=== PATIENT | female | born 1995 | race African-American/Black ===

== ENCOUNTER 2017-02-13 07:15 | Inpatient (IN) ==
[2017-02-13] MEDS ORDERED: CITRIC ACID/SODIUM CITRATE 30 ML UDCUP PO ONE (07:57)
[2017-02-13] MEDS ORDERED: FAMOTIDINE 20 MG/2 ML VIAL IV ONE (07:57)
[2017-02-13] MEDS ORDERED: ceFAZolin 2,000 MG in PREMIX 1 EACH IV ONE (07:57)
[2017-02-13] MEDS ORDERED: LACTATED RINGERS 1,000 ML IV SCH ×2 (08:00→12:00)
[2017-02-13] MEDS ORDERED: OXYTOCIN/LR 20 UNIT/1,000 ML BAG IV ONE ×2 (08:02→11:34)
[2017-02-13] MEDS ORDERED: OXYTOCIN/LR 30 UNIT/1,000 ML BAG IV ONE (08:02)
[2017-02-13] MEDS ORDERED: OXYTOCIN 10 UNIT/ML VIAL IM ONE (08:02)
[2017-02-13 08:20] LABS: Basophils % 0.3 % (0.0-0.8); Eosinophils # 0.2 10*3/uL (0.0-0.87); Eosinophils % 1.3 % (0.00-10.9); Hematocrit 30.3 VOL% (35.7-47.0); Hemoglobin 9.9 GM/DL (12.0-16.0); Immature Granulocytes % 0.8 %; Immature Granulocytes Absolute 0.09 #; Lymphocytes # 2.3 10*3/uL (1.4-4.0); Lymphocytes % 18.8 % (21.3-54.2); Mean Corpuscular HGB Conc 32.7 GM/DL (32-36); Mean Corpuscular Hemoglobin 25 PG (27-34); Mean Corpuscular Volume 76.5 FL (87-102); Monocytes % 8.1 % (1.7-12.7); Neutrophils # 8.4 10*3/uL (1.4-7.4); Neutrophils % 70.7 % (38.7-73.9); Platelet Count 215 T/CUMM (130-400); Red Blood Count 3.96 MC/CUMM (3.8-5.5); Red Cell Distribution Width 15.5 % (9.3-17.3); White Blood Count 11.9 T/CUMM (4-12)
[2017-02-13 08:54] LABS: Bilirubin,Total 0.4 MG/DL (0.2-1.0); Calcium 9.5 MG/DL (8.5-10.1); Osmolality,Calculated 272.7 MOS/KG (273-304); Potassium 4.3 MMOL/L (3.5-5.1); Total Protein 7.2 G/DL (6.4-8.3)
--- NOTE | 2017-02-13 09:35 | OB/GYN History & Physical ---
History of Present Illness Chief complaint: For repeat section due to previous section History of present illness: Ms. Jimenez is a 21 year old female who is a 2 para 1 living 1. Her KALEN is 6 a 17 estimated gestational age of 39 weeks. The patient presents for repeat section due to previous section 1. The risk and benefits been thoroughly discussed with this patient and significant other, plan of care has been discussed with Dr. Wallis and all parties are in agreement plan. Patient received her care at the [facility] and she received routine care, her course has been uneventful. The patient had a previous section of a liveborn infant and she reported no complications with that other than elevated blood pressures towards the end of her . labs: Patient is O+, rubella is immune, serologies nonreactive, hepatitis B negative, HIV negative, GBS culture positive. Home Medications Medication Instructions Recorded Confirmed Type Vit 108/Iron/Folic AC 1 each PO DAILY 02/13/17 02/13/17 History [ One Tablet] Allergies Allergy/AdvReac Type Severity Reaction Status Date / Time No Known Allergies Allergy Verified 02/13/17 07:57 12 point system: reviewed and no additional remarkable complaints except as stated Medical,Surgical,& Family Hx - Medical History Cardio: History of: Hypertension - Surgical History Reproductive Surgeries: Surgical HX of;: Section (2009) - Family History Family History: Reports;: Family Diabetes (Father), Family Hypertension (Father) - Social History Smoking Status: Former smoker (Patient states that she quit in April 2016) Have you smoked in the last 12 months: Yes Type of Drug Use: Marijuana (Past use denies during ) Marital Status: Single Lives With:: Significant Other Functional capacity: independent ambulation [employer] - Constitutional General appearance: no acute distress - Antepartum / Post Antepartum Exam Cervix - Dilatation: Deferred Breast: bilateral: normal Abdomen obstetrics: Present: bowel sounds normal Uterus exam: Present: enlarged - Respiratory Respiratory exam: Present: clear to auscultation bilaterally - Cardiovascular Cardiovascular exam: Present: regular rate and rhythm - GI/Abdominal GI/Abdominal exam: Present: normal bowel sounds, soft - Extremities Exam Extremities exam: Present: normal inspection - Back Exam Back exam: Present: normal inspection - Neurological Exam Neurological exam: Present: alert, oriented X3 - Psychiatric Psychiatric exam: Present: normal affect, normal mood - Skin Skin exam: Present: normal color, warm Assessment and Plan (1) Term Status: Acute Assessment and plan: Admit IV fluids Preop and consent for repeat section per Dr. Wallis Anticipate delivery of viable infant Current Visit: Yes (2) Previous section Status: Acute Assessment and plan: Same as above Current Visit: Yes Results - Labs CBC & BMP: 02/13/17 08:03 02/13/17 08:03
[2017-02-13 11:25] LABS: Cord Arterial Blood HCO3 24.8 MMOL/L
[2017-02-13 11:28] LABS: Cord Venous Blood HCO3 22.1 MMOL/L; Cord Venous Blood PCO2 38.4 MMHG; Cord Venous Blood PO2 37.2 MMHG
--- NOTE | 2017-02-13 11:33 | Operative Note ---
Date of procedure: 02/13/17 Procedure: Preoperative diagnosis: 39 weeks, repeat section Postoperative diagnosis: Same Anesthesia:[] Regional anesthesia Estimated blood loss: [] 300 cc Surgeon: Dr. Wallis Findings: [] Female infant, born at 11:09 AM, 6 lbs. 12 oz., Apgars 8 at 1 minute 9 at 5 minutes Complications: None Procedure: Low transverse section The patient was taken to the operating suite heart tones were obtained prior to and after regional anesthesia was obtained. She was placed in supine position her abdomen was prepped and draped in usual manner for major abdominal surgery. Through an abdominal incision the skin, subcutaneous, fascial layer and peritoneal the abdomen was entered. The bladder flap was created and a low transverse incision was made.. Fluid was clear and normal amount X, Apgars, the placenta was delivered and sent to lab for further evaluation. Injected with intrauterine Pitocin. The first layer of the uterus was closed with #1 Vicryl in a continuous locking manner. Close to imbricate the first layer with #1 Vicryl. The peritoneum was approximated with #2-0 Vicryl.[] All the last sponges and instruments were accounted for -2.) #2-0 Vicryl. Fascia was approximated with #0-0 Maxon.. The skin was approximated with chaz. She tolerated procedure well and was taken to recovery room in stable condition. Surgeon / Physician: Samir Wallis Results - Labs CBC & BMP: 02/13/17 08:03 02/13/17 08:03 Discharge Plan - Discharge Medications No Action Vit 108/Iron/Folic AC [ One Tablet] 1 each PO DAILY - Follow Up or Referral - Forms/Instructions
[2017-02-13] MEDS ORDERED: MAGNESIUM HYDROXIDE SUSP 30 ML UDCUP PO PRN (11:34)
[2017-02-13] MEDS ORDERED: IBUPROFEN 800 MG TABLET PO PRN (11:34)
[2017-02-13] MEDS ORDERED: ONDANSETRON 4 MG/2 ML VIAL IV PRN (11:34)
[2017-02-13] MEDS ORDERED: SIMETHICONE CHEW 80 MG TABLET PO PRN (11:34)
[2017-02-13] MEDS ORDERED: ACETAMINOPHEN 325 MG TABLET PO PRN (11:34)
[2017-02-13] MEDS ORDERED: fentaNYL 100 MCG/2 ML VIAL ONE (11:43)
[2017-02-13] MEDS ORDERED: MIDAZOLAM 2 MG/2 ML VIAL ONE (11:43)
[2017-02-13] MEDS ORDERED: ePHEDrine 50 MG/ML AMP ONE (11:44)
[2017-02-13] MEDS ORDERED: MORPHINE 10 MG/10 ML VIAL ONE (11:45)
[2017-02-13] MEDS ORDERED: RHO(D) IMMUNE GLOBULIN 300 MCG SYRINGE IM ONE (12:00)
[2017-02-13 12:48] LABS: Apearance,Urine CLEAR (Clear); Bilirubin,Urine Negative (Negative); Blood, Urine Negative (Negative); Glucose,Urine (UA) Negative (Negative); Ketones,Urine Negative (Negative); Nitrite,Urine Negative (Negative); Protein,Urine Negative; Squamous Epithelial Cell,Urine Occasional /HPF (0-10); Urine Color Yellow (Yellow); Urine Specific Gravity 1.006 (1.001-1.035); Urine Urobilinogen < 2.0 EU/DL (0.2-1.0); WBC,Urine <1 /HPF (0-6)
--- NOTE | 2017-02-13 15:27 | Anesthesia Post-Op ---
Anesthesia Post OP - Post Ansesthetic Evaluation Patient seen in post op: Yes Resp: within normal limits CV: within normal limits Mental: within normal limits Temp: within normal limits [id number]: within normal limits Nausea and Vomiting: within normal limits Pain: within normal limits
[2017-02-13 19:23] LABS: Basophils % 0.2 % (0.0-0.8); Eosinophils # 0.1 10*3/uL (0.0-0.87); Eosinophils % 0.5 % (0.00-10.9); Hematocrit 28.6 VOL% (35.7-47.0); Hemoglobin 9.2 GM/DL (12.0-16.0); Immature Granulocytes % 0.9 %; Immature Granulocytes Absolute 0.12 #; Lymphocytes # 1.6 10*3/uL (1.4-4.0); Lymphocytes % 11.9 % (21.3-54.2); Mean Corpuscular HGB Conc 32.2 GM/DL (32-36); Mean Corpuscular Hemoglobin 25 PG (27-34); Mean Corpuscular Volume 77.9 FL (87-102); Mean Platelet Volume 12.6 FL (9.6-12.0); Monocytes % 7.6 % (1.7-12.7); Neutrophils # 10.5 10*3/uL (1.4-7.4); Neutrophils % 78.9 % (38.7-73.9); Platelet Count 207 T/CUMM (130-400); Red Blood Count 3.67 MC/CUMM (3.8-5.5); Red Cell Distribution Width 15.4 % (9.3-17.3); White Blood Count 13.3 T/CUMM (4-12)
[2017-02-14] MEDS: DOCUSATE SODIUM 100 MG CAPSULE PO SCH ×3 (00:59→22:05)
[2017-02-14 06:56] LABS: Basophils % 0.2 % (0.0-0.8); Eosinophils % 0.3 % (0.00-10.9); Hemoglobin 8.6 GM/DL (12.0-16.0); Immature Granulocytes % 1.5 %; Immature Granulocytes Absolute 0.18 #; Lymphocytes # 1.4 10*3/uL (1.4-4.0); Lymphocytes % 11.1 % (21.3-54.2); Mean Corpuscular HGB Conc 31.9 GM/DL (32-36); Mean Corpuscular Hemoglobin 24 PG (27-34); Mean Corpuscular Volume 76.7 FL (87-102); Mean Platelet Volume 12.8 FL (9.6-12.0); Monocytes # 1.1 10*3/uL (0.11-0.8); Monocytes % 9.1 % (1.7-12.7); Neutrophils # 9.5 10*3/uL (1.4-7.4); Neutrophils % 77.8 % (38.7-73.9); Platelet Count 218 T/CUMM (130-400); Red Blood Count 3.52 MC/CUMM (3.8-5.5); Red Cell Distribution Width 15.3 % (9.3-17.3); White Blood Count 12.2 T/CUMM (4-12)
[2017-02-14 07:25] LABS: Lymphocytes 6 % (20-55); Segmented Neutrophils 84 % (50-85); Total Cells Counted 100
[2017-02-14 07:26] LABS: Hypochromasia 1+; Ovalocytes Slight; Platelet Estimate Normal
[2017-02-14] MEDS: MULTIVITAMIN (PRENATAL) TABLET PO SCH (09:00)
[2017-02-14] MEDS: FERROUS SULFATE 325 MG TABLET PO SCH ×2 (09:00→22:05)
--- NOTE | 2017-02-14 14:27 | Progress Note ---
Family Medicine PN Sub Interval history: Postop day #1 status post section Lungs clear cardiac exam benign Abdomen soft and nontender Incision sites intact Extremities well with no limits neurologic grossly intact Possible discharge in a.m. Exam (Progress Note) - Constitutional Vitals: Period Temp Pulse Resp BP Sys/Richter Pulse Ox Last 24 Hr 97.6 F-98.3 F 60-83 18-20 99-120/58-76 97-100 Results - Labs CBC & BMP: 02/14/17 06:27 02/13/17 08:03 Quality Measures - VTE Contraindication to Pharmacological VTE Prophylaxis: Clinical assessment deems Pt at low risk, no prophalaxis needed
[2017-02-14] MEDS ORDERED: HYDROCORTISONE 2.5% RECTAL CREAM 30 GM TUBE TOP PRN (20:48)
[2017-02-14] MEDS ORDERED: WITCH HAZEL PADS 100/JAR TOP PRN (20:49)
[2017-02-15] MEDS: DOCUSATE SODIUM 100 MG CAPSULE PO SCH (08:52)
[2017-02-15] MEDS: FERROUS SULFATE 325 MG TABLET PO SCH (08:52)
[2017-02-15] MEDS: MULTIVITAMIN (PRENATAL) TABLET PO SCH (08:54)
--- NOTE | 2017-02-15 11:46 | Discharge Summary ---
Hospital Course - Hospital Course Hospital Course: Postop day #2 secondary to a repeat section. Incision sites intact, patient is doing extremely well. Uterus is nice and firm Extremities well with no limits neurologic grossly intact We will DC today and follow-up our office in 2 weeks Specialty Discharge - Follow Up or Referrals Discharge Plan - Discharge Data Condition at Discharge: Stable Discharge Diet: advance to your usual diet Activity: increase activity as tolerated Hygiene: no restrictions, may shower Weight Bearing at Discharge: full weight bearing Driving: not until seen by doctor Contact your physician if you experience:: fever over 101, Bleeding - Discharge Medications New HYDROcodone/ACETAMIN 5-325 [[place] 5-325] 1 tablet PO Q6H PRN #30 tablet PRN Reason: Pain Moderate (4-7) Hydrocortisone (Anusol-Hc) Sup [ANUSOL HC SUPP (hydrocortisone)] 25 mg RECTAL BID #14 supp Ibuprofen Tab [Motrin Tab] 800 mg PO Q8H PRN #60 tablet PRN Reason: Pain Severe (8-10) Ferrous Sulfate Tab [Feosol Original Tab] 325 mg PO BID #60 tablet No Action Vit 108/Iron/Folic AC [ One Tablet] 1 each PO DAILY - Follow Up or Referral - Forms/Instructions Instructions: Section (DC), Perineal Care (DC), Bleeding (DC) Exam - Constitutional Vitals: Period Temp Pulse Resp BP Sys/Richter Pulse Ox Last 24 Hr 96.9 F-98.3 F 68-102 16-20 100-120/48-69 95-99 DS: Provider Date of admission: 02/13/17 07:15 Primary care physician: . No PCP Attending physician on admission: Samir Wallis MD Consults: 02/13/17 07:58 Consult to Anesthesiology [CONS] Routine Consulting Provider: Reason for Anesthesiology: Pre-op Clearance 02/13/17 11:34 Consult to Circular Saw Edge Fuser [CONS] Routine Consult Circular Saw Edge Fuser: Breast Feeding Discharging clinician: Samir Wallis MD
[2017-02-15] MEDS ORDERED: DIPH/TET/ACEL PERT BOOSTER VACCINE 0.5 ML VIAL IM ONE (13:16)
[2017-02-15 15:59] VITALS: BP 115/70
== END 2017-02-15 15:55 | disposition home or self-care (01) | DRG 540 ==
LOC: N.LD 07:15 → N.OB 14:04
PROVIDERS: ADMIT Obstetrics & Gynecology; ATTEND Obstetrics & Gynecology
PROC: LDCSECT (ICD-10-PCS; 2017-02-13 08:30)